=== PATIENT | female | born 1980 | race Caucasian/White ===

== ENCOUNTER 2023-05-20 16:11 | Emergency (ER) | payer BC, SELFPAY ==
[2023-05-20 16:19] VITALS: BP 141/107
[2023-05-20 16:37] LABS: % Basophils 1.3 % (0-2); % Eosinophils 7.2 % (0-6); % Immature Granulocytes 0.3 % (0-0.5); % Lymphocytes 30.5 % (20.5-51.1); % Monocytes 7.2 % (1.7-9.3); % Neutrophils 53.5 % (42.2-75.2); Absolute Basophils 0.1 10^3/uL (0-0.2); Absolute Eosinophils 0.5 10^3/uL (0-0.7); Absolute Lymphocytes 2.1 10^3/uL (1.2-3.4); Absolute Monocytes 0.5 10^3/uL (0.1-0.6); Absolute Neutrophils 3.6 10^3/uL (1.4-6.5); Hematocrit 38.9 % (37.0-47.0); Hemoglobin 12.6 g/dL (12.0-16.0); Mean Corp Hgb Conc. 32.4 g/dL (33.0-37.0); Mean Corpuscular Hgb 24.5 pg (27.0-31.0); Mean Corpuscular Volume 75.7 fL (81.0-99.0); Mean Platelet Volume 10.7 fL (7.4-10.4); Nucleated Red Blood Cells % 0 %; Platelet Count 310 10^3/uL (130-400); Red Blood Cell Count 5.14 10^6/uL (4.20-5.40); Red Cell Dist. Width 16.3 % (11.5-14.5); White Blood Cell Count 6.8 10^3/uL (4.8-10.8)
[2023-05-20 16:43] LABS: HCG, Serum Qualitative Screen Negative
[2023-05-20 17:19] LABS: ALT (SGPT) 23 U/L (0-35); AST (SGOT) 23 U/L (14-36); Albumin 4.5 g/dl (3.5-5.0); Alkaline Phosphatase 78 U/L (38-126); Blood Urea Nitrogen 21 mg/dl (7-17); Calcium 9.9 mg/dl (8.4-10.2); Carbon Dioxide 27 mmol/L (22-30); Chloride 105 mmol/L (98-107); Glucose 76 mg/dl (70-99); Sodium 138 mmol/L (135-145); Total Bilirubin 0.4 mg/dl (0.2-1.3); Total Protein 7.4 g/dl (6.3-8.2); eGFR > 60.00
[2023-05-20 17:23] VITALS: BP 135/76; BMI 38.5
--- NOTE | 2023-05-20 18:51 | ED.GENMED ---
History of Present Illness
General
Chief Complaint: Vaginal Bleeding
Source: patient
Exam Limitations: none
Time Seen by Provider: 05/20/23 17:32
Nursing documentation reviewed up to this point in time: agreed with
Travel History
Have you had any contact with someone who has COVID-19?: No
Do you have any symptoms of coronavirus? Fever > 100 degrees, chills, cough, shortness of breath, sore throat, loss of taste or smell, muscle aches, or headache?: No
History of Present Illness
History of Present Illness:
Patient presents to ED secondary to intermittent vaginal bleeding over the past 1 month, which is longer than her typical bleeding during her menstrual cycle. Denies abdominal pain. Denies vaginal bleeding. Denies trauma. Denies fever or
chills. Denies dizziness. Denies shortness of breath. Denies weakness. Denies recent change in medications or diet. Of note, patient has had similar symptoms in the past, typically associated with traveling outside the country. In fact,
patient reports vacationing in January. Patient has an appointment with her [facility] physician in July.
Review of Systems
Review of Systems
Allergies reviewed?: Yes
All Other Systems: ROS reviewed and negative except as documented in HPI and ROS
Constitutional: Reports no symptoms
EENT: Reports no symptoms
Respiratory: Reports no symptoms; Denies trouble breathing
Cardiac: Reports no symptoms; Denies chest pain
ABD/GI: Reports no symptoms; Denies abdominal pain
: Reports bleeding
Musculoskeletal: Reports no symptoms
Skin: Reports no symptoms
Neurological: Reports no symptoms; Denies headache or weakness
Phy Exam
Physical Exam
Physical Exam:
Physical Exam
General: no apparent distress, not acutely ill. afebrile
Head: nc/at. eomi
Neck: supple. no meningeal signs.
Abdomen: normal bowel sounds. not tender.
: (DELMI Vasquez, at bedside): no bleeding noted.
Neuro: alert and oriented. no focal neurological deficits
Skin: no rash
Psychiatric: well kept. interactive and cooperative
Extremities: no edema. no calf tenderness.
Course
Orders/Labs/Results
Orders:
Orders
05/20/23 16:23
Test Result ONCE
05/20/23 16:27
Type+Screen Urgent
CBC/With Diff [Complete Blood Count/With Diff] Urgent
CMP [Comprehensive Metabolic Panel] Urgent
HCG, Serum Qualitative Screen Urgent
TSH Reflex To Free T4 Urgent
Comment: ADD ON
05/20/23 19:02
Add On- LAB Urgent
Tests Added?: TSH to reflex free T4
Abnormal Lab Results
05/20/23
16:27
MCV 75.7 L fL
(81.0-99.0)
MCH 24.5 L pg
(27.0-31.0)
MCHC 32.4 L g/dL
(33.0-37.0)
RDW 16.3 H %
(11.5-14.5)
MPV 10.7 H fL
(7.4-10.4)
Eosinophils % 7.2 H %
(0-6)
BUN 21 H mg/dl
(7-17)
05/20/23 16:27
05/20/23 16:27
Vital Signs
Initial and Last Documented VS:
Initial Vital Signs
Temp Pulse Resp BP Pulse Ox
99.0 F 72 18 141/107 99
05/20/23 16:19 05/20/23 16:19 05/20/23 16:19 05/20/23 16:19 05/20/23 16:19
Last Documented Vital Signs
Temp Pulse Resp BP Pulse Ox
99.0 F 80 16 125/93 98
05/20/23 16:19 05/20/23 19:10 05/20/23 17:23 05/20/23 19:10 05/20/23 19:10
MDM/Problems Addressed
MDM/Problems Addressed:
H/H noted along with normal speculum exam. Pt with likely irregular menses, but not with any sig. bleeding. Pt will be referred to strainer tender for further evaluation and treatment. Pt given script for Aygestin, to be started, if there is recurrent heavy
bleeding prior to strainer tender consultation.
*Critical Care Note
Total Time (30-74mins, 75-104mins- exclusive of procedures): Not Applicable
ED Attending Note
-
Portions of this chart may have been created with voice recognition software.� Occasional wrong word or��sound alike� substitutions may have occurred due to the inherent limitations of voice recognition software.
Discharge Plan
Departure
Patient Disposition: Home (Routine Discharge)
Date of Disposition: 05/20/23
Time of Disposition: 18:54
Patient with high blood pressure during this ER visit?: Yes
Condition: Good
Discharge Problem:
Vaginal bleeding
Instructions: Bleeding Between Periods
Prescriptions:
New
norethindrone acetate 5 mg tablet
5 mg PO DAILY Qty: 5 0RF
Referrals:
Jacque Gilliam, DO [Active] -
Activity Restrictions/Additional Instructions:
As discussed, please follow up with your primary care physician and/or referred [facility] physician for further evaluation and treatment.
Interventions
Interventions:
*Risk Screen - Suicide Last Done: 05/20/23 16:19
*General Assessment Last Done: 05/20/23 16:19
*Neglect/Abuse Screening Last Done: 05/20/23 16:19
ED- Fall Risk Assessment Last Done: 05/20/23 18:55
*ED COVID-19 Vaccine History Last Done: 05/20/23 16:19
*Nursing Disposition Last Done: 05/20/23 19:10
ED-Female Genitourinary Assessment Last Done: 05/20/23 17:00
Discharge Date and Time
Discharge Date/Time: 05/20/23 19:10
[2023-05-20 19:10] VITALS: BP 125/93
[2023-05-20 20:12] LABS: TSH Reflex To Free T4 2.25 uIU/ml (0.47-4.68)
== END 2023-05-20 19:10 | disposition home or self-care (01) ==
LOC: EMR 16:11
PROVIDERS: Emergency Medicine; EMERGENCY PHYSICIAN Emergency Medicine
DX: N93.9 Abnormal uterine and vaginal bleeding, unspecified (principal); R03.0 Elevated blood-pressure reading, without diagnosis of hypertension
CPT/HCPCS: 99283; 80053; 84443; 84703; 85025; 86850; 86900; 86901